=== PATIENT | male | born 1995 | race Caucasian/White ===

== ENCOUNTER 2017-08-09 10:11 | Emergency (ER) | payer MEDICAID, OTHER ==
[2017-08-09 11:04] LABS: GLUCOSE, URINE (UA) NEGATIVE (NEGATIVE); KETONES,URINE (UA) TRACE mg/dL (NEGATIVE); LEUKOCYTE ESTERASE, URINE NEGATIVE (NEGATIVE); NITRITE,URINE NEGATIVE (NEGATIVE); OCCULT BLOOD,URINE NEGATIVE (NEGATIVE); PROTEIN,URINE 30 mg/dL (NEGATIVE); UROBILINOGEN,URINE 0.2 (NORMAL) E.U./dL (NORMAL)
[2017-08-09 11:07] LABS: BILIRUBIN,URINE NEGATIVE (NEGATIVE); CLARITY,URINE CLEAR (CLEAR); ICTOTEST,URINE NEGATIVE
[2017-08-09 11:14] LABS: BACTERIA,URINE Few /HPF (None Seen); MUCUS,URINE Marked Strands; RBC,URINE 0-5 /HPF (0-5); SQUAMOUS EPITHELIAL CELL,UR RARE Squamous (<= Few)
[2017-08-09 11:15] LABS: BASOPHILS # (AUTO) 0.1 10^3/uL (0.0-0.1); BASOPHILS % (AUTO) 0.5 %; EOSINOPHILS # (AUTO) 0.2 10^3/uL (0.0-0.7); EOSINOPHILS % (AUTO) 1.3 %; HGB - HEMOGLOBIN 16.4 g/dL (14.0-18.0); LYMPHOCYTES # (AUTO) 1.2 10^3/uL (1.5-3.5); LYMPHOCYTES % (AUTO) 10.9 %; MEAN CORPUSCULAR HEMOGLOBIN 31.4 pg (27.0-31.0); MEAN CORPUSCULAR HGB CONC 33.9 g/dL (32.0-36.0); MEAN CORPUSCULAR VOLUME 92.7 fL (80.0-94.0); MEAN PLATELET VOLUME 7.2 fL (7.4-11.4); MONOCYTES # (AUTO) 0.6 10^3/uL (0.0-1.0); MONOCYTES % (AUTO) 5.6 %; NEUTROPHILS # (AUTO) 9.3 10^3/uL (1.5-6.6); NEUTROPHILS % (AUTO) 81.7 %; PLT - PLATELET COUNT 273 10^3/uL (130-450); RED BLOOD COUNT 5.22 10^6/uL (4.70-6.10); RED CELL DISTRIBUTION WIDTH 13.6 % (12.0-15.0); WHITE BLOOD COUNT 11.4 x10^3/uL (4.8-10.8)
[2017-08-09] MEDS ORDERED: MAG HYDROX/AL HYDROX/SIMETH 30 ML UDC PO STA (11:16)
[2017-08-09] MEDS ORDERED: SODIUM CHLORIDE 0.9% 1,000 ML IV ONE (11:16)
[2017-08-09] MEDS ORDERED: LIDOCAINE VISCOUS 2% 15 ML UDC MM STA (11:16)
[2017-08-09] MEDS ORDERED: PANTOPRAZOLE 40 MG VIAL IVP STA (11:16)
[2017-08-09] MEDS ORDERED: ONDANSETRON 4 MG/2 ML VIAL IVP STA ×2 (11:16→12:06)
--- NOTE | 2017-08-09 11:19 | ED Physician Documentation ---
PD HPI ABD PAIN - Stated complaint Stated Complaint: ABD PX - Chief complaint Chief Complaint: Abd Pain - History obtained from History obtained from: Patient, Family - History of Present Illness Timing - onset: How many weeks ago (2) Timing - duration: Weeks (2) Timing - details: Gradual onset, Still present, Waxing and waning Quality: Sharp, Pain Location: LUQ Radiation: Left flank Improved by: Laying still Worsened by: Eating Associated symptoms: Nausea, Vomiting. No: Diarrhea, Constipation Similar symptoms before: Diagnosis (PUD) Recently seen: Not recently seen - Additional information Additional information: 21-year-old male is developed some left upper quadrant abdominal pain The morning after a night of drinking and he felt this was likely due to the drinking itself. He try to medicate this with some acid reducing medicine and he vomited it he states he is not they have been able to hold this medicine down he has been able to hold fluids and food down if he smokes weed. Review of Systems Constitutional: denies: Fever Eyes: denies: Decreased vision Ears: denies: Ear pain Nose: denies: Rhinorrhea / runny nose, Congestion Throat: denies: Sore throat Cardiac: denies: Chest pain / pressure, Palpitations Respiratory: denies: Dyspnea, Cough GI: reports: Abdominal Pain, Nausea, Vomiting : denies: Dysuria, Frequency Skin: denies: Rash Musculoskeletal: reports: Back pain. denies: Neck pain, Extremity pain Neurologic: denies: Generalized weakness, Focal weakness, Numbness, Difficulty speaking PD PAST MEDICAL HISTORY - Past Medical History Past Medical History: No - Past Surgical History Past Surgical History: No - Present Medications Home Medications: Ambulatory Orders Medication Instructions Recorded Confirmed Ondansetron Odt [Zofran] 4 mg TL Q6H PRN #10 tablet 08/09/17 - Allergies Allergies/Adverse Reactions: Allergies Allergy/AdvReac Type Severity Reaction Status Date / Time No Known Drug Allergies Allergy Verified 08/09/17 10:19 - Social History Does the pt smoke?: Yes Smoking Status: Current every day smoker PD ED PE NORMAL - Vitals Vital signs reviewed: Yes (hypertensive ) - General General: Alert and oriented X 3, No acute distress, Well developed/nourished - HEENT HEENT: Atraumatic, PERRL, EOMI - Neck Neck: Supple, no meningeal sign, No bony TTP - Cardiac Cardiac: RRR, No murmur - Respiratory Respiratory: No respiratory distress, Clear bilaterally - Abdomen Abdomen: Soft, Other (mild epigastric tenderness to palpation ) - Back Back: No CVA TTP, Other (tenderness to the paraspinous muscles on the left at the T/L junction ) - Derm Derm: Normal color, Warm and dry, No rash - Extremities Extremities: No deformity, No edema - Neuro Neuro: No motor deficit, No sensory deficit Eye Opening: Spontaneous Motor: Obeys Commands Verbal: Oriented GCS Score: 15 - Psych Psych: Normal mood, Normal affect Results - Vitals Vitals: Vital Signs - 24 hr 08/09/17 08/09/17 10:17 13:20 Temperature 35.9 C L Heart Rate 82 56 L Respiratory 18 18 Rate Blood Pressure 145/75 H 132/82 H O2 Saturation 99 100 Oxygen O2 Source Room air - Labs Labs: Laboratory Tests 08/09/17 08/09/17 08/09/17 10:55 11:00 11:00 WBC 11.4 H RBC 5.22 Hgb 16.4 Hct 48.4 MCV 92.7 MCH 31.4 H MCHC 33.9 RDW 13.6 Plt Count 273 MPV 7.2 L Neut # 9.3 H Lymph # 1.2 L [place] # 0.6 Eos # 0.2 Baso # 0.1 Absolute Nucleated RBC 0.00 Nucleated RBC % 0.0 Sodium 135 Potassium 3.6 Chloride 100 L Carbon Dioxide 27 Anion Gap 8.0 BUN 10 Creatinine 1.1 Estimated GFR (MDRD) 85 L Glucose 118 H Calcium 9.4 Total Bilirubin 1.1 H AST 22 ALT 17 Alkaline Phosphatase 56 Total Protein 7.9 Albumin 5.2 Globulin 2.7 Albumin/Globulin Ratio 1.9 Lipase 14 L Urine Color DARK YELLOW Urine Clarity CLEAR Urine pH 6.0 Ur Specific [place] >=1.030 H Urine Protein 30 H Urine Glucose (UA) NEGATIVE Urine Ketones TRACE Urine Occult Blood NEGATIVE Urine Nitrite NEGATIVE Urine Bilirubin NEGATIVE Urine Urobilinogen 0.2 (NORMAL) Ur Leukocyte Esterase NEGATIVE Urine RBC 0-5 Urine WBC 0-3 Ur Squamous Epith Cells RARE Squamous Urine Bacteria Few Urine Mucus Marked Strands Ur Microscopic Review INDICATED Urine Culture Comments NOT INDICATED - Rads (name of study) CT abd/pel without Radiology: Prelim report reviewed (Impression: Normal abdomen and pelvis CT. Normal appendix.), EMP read indepedently, See rad report Procedures - Bedside sono Bedside sono by EMP: With use of bedside ultrasound the left kidney is imaged it is sonographically nontender and without evidence of hydronephrosis. - IVC sono (time) 1100 Bedside IVC sono: IVC measures (cm) (1.75), Euvolemia PD MEDICAL DECISION MAKING - ED course Complexity details: reviewed old records, reviewed results, re-evaluated patient , considered differential, d/w patient ED course: This young 21-year-old male has had an issue with nausea and vomiting for the last 2 weeks and some abdominal pain. After review of history and findings on physical exam and laboratory studies, which were all negative I did ask the patient about his bathing and he indicates that he is getting into the shower 4 times per day to relieve symptoms. We then had a discussion about cannabis hyperemesis and I recommended he stop the cannabis and use the Zofran as needed. He did get relief with Zofran he did not get relief with a GI cocktail. Departure - Departure Disposition: 01 Home, Self Care Clinical Impression: Cannabis hyperemesis syndrome concurrent with and due to cannabis abuse Gastritis Qualifiers: Gastritis type: unspecified gastritis Chronicity: acute Gastritis bleeding: without bleeding Qualified Code(s): K29.00 - Acute gastritis without bleeding Condition: Stable Instructions: ED PUD Vs Gastritis Follow-Up: [facility] [Provider Group] Prescriptions: Ondansetron Odt [Zofran] 4 mg TL Q6H PRN #10 tablet PRN Reason: Nausea / Vomiting Comments: Today it appears the pain you are having is related to your stomach and the vomiting your experience is likely related to use of excessive cannabis. My recommendation is that you stop the cannabis and use the Zofran as needed for the nausea and expect your symptoms to resolve within the next week. Forms: Activity restrictions
[2017-08-09 11:28] LABS: ALBUMIN 5.2 g/dL (3.2-5.5); ALBUMIN/GLOBULIN RATIO 1.9 (1.0-2.2); BILIRUBIN,TOTAL 1.1 mg/dL (0.2-1.0); CALCIUM 9.4 mg/dL (8.5-10.3); CREATININE 1.1 mg/dL (0.6-1.2); TOTAL PROTEIN 7.9 g/dL (6.7-8.2)
[2017-08-09] MEDS ORDERED: KETOROLAC 60 MG/2 ML VIAL IVP STA (12:06)
--- NOTE | 2017-08-09 12:55 | CT Preliminary Report ---
Exam: CT ABDOMEN/PELVIS W/O IMPRESSION: Normal abdomen and pelvis CT. normal appendix [facility] SITE ID: [id number]
--- NOTE | 2017-08-09 12:55 | CT Report ---
EXAM: CT ABDOMEN AND PELVIS EXAM DATE: 08/09/2017 12:19 PM. CLINICAL HISTORY: Left upper quadrant pain. COMPARISONS: None. TECHNIQUE: Routine helical CT imaging was performed through the abdomen and pelvis. IV contrast: Amt/ type. Enteric contrast: No. Reconstructions: Coronal and sagittal. In accordance with CT protocol optimization, one or more of the following dose reduction techniques w ere utilized for this exam: automated exposure control, adjustment of mA and/or KV based on patient s ize, or use of iterative reconstructive technique. FINDINGS: Lung Bases: Unremarkable. Liver: Normal. No masses. Gallbladder/Bile Ducts: Unremarkable. Spleen: Normal. Pancreas: Normal. Adrenal Glands: Normal. Kidneys: Normal. No masses or hydronephrosis. Peritoneal Cavity/Bowel: Normal. No free fluid, free air or adenopathy. No masses or acute inflammato ry process. The appendix is well visualized and normal. Pelvic Organs: Normal. The bladder and visualized pelvic organs are within normal limits. Vasculature: No aneurysms or other significant abnormality. Bones: No significant abnormality. Other: None. IMPRESSION: Normal abdomen and pelvis CT. normal appendix [facility] Referring Provider Line: [phone] SITE ID: [id number]
[2017-08-09 13:20] VITALS: BP 132/82
== END 2017-08-09 14:05 | disposition home or self-care (01) ==
LOC: ED 10:11
DX: K29.00 Acute gastritis without bleeding (principal); F12.188 Cannabis abuse with other cannabis-induced disorder; R11.2 Nausea with vomiting, unspecified; F17.200 Nicotine dependence, unspecified, uncomplicated
CPT/HCPCS: 36415; 74176; 80053; 81001; 83690; 85025; 96374; 96375; 96376; 99283; 99284; A9270; 81003; 87086

== ENCOUNTER 2018-12-15 14:56 | Emergency (ER) | payer MEDICAID ==
--- NOTE | 2018-12-15 15:39 | ED Physician Documentation ---
PD HPI ABD PAIN - Stated complaint Stated Complaint: AB PX - Chief complaint Chief Complaint: Abd Pain - History obtained from History obtained from: Patient - History of Present Illness Timing - onset: How many days ago (2-3) Timing - details: Gradual onset, Still present Quality: Aching, Pain Location: Epigastric, Periumbilical Radiation: No: Lower back Improved by: Vomiting, Other (taking shower or bath) Worsened by: Eating Associated symptoms: Nausea, Vomiting (has had nausea and vomiting with some mid abd pain for 2-3 days. Had had similar in the past and Dx as possible cannibis hyperemesis. Also with gastritis/ulcer in the past. Has had the N/V for 3 days and also now a day of epigastric pains.) Similar symptoms before: Diagnosis (ulcer and possible cannibis hyperemesis episode) Review of Systems Constitutional: denies: Fever, Myalgias Nose: denies: Rhinorrhea / runny nose, Congestion Throat: denies: Sore throat Respiratory: denies: Cough GI: reports: Abdominal Pain, Nausea, Vomiting. denies: Diarrhea, Hematemesis Neurologic: reports: Generalized weakness. denies: Focal weakness, Numbness, Altered mental status, Headache PD PAST MEDICAL HISTORY - Past Medical History Past Medical History: No GI: Ulcers - Past Surgical History Past Surgical History: No - Present Medications Home Medications: Ambulatory Orders Medication Instructions Recorded Confirmed Ondansetron Odt [Zofran] 4 mg TL Q6H PRN #10 tablet 08/09/17 Ondansetron Odt [Zofran] 4 mg TL Q6H PRN #20 tablet 12/15/18 Sucralfate [Carafate] 1 gm PO ACHS #24 tablet 12/15/18 Tramadol HCl 50 mg PO Q6H PRN #15 tablet 12/15/18 - Allergies Allergies/Adverse Reactions: Allergies Allergy/AdvReac Type Severity Reaction Status Date / Time No Known Drug Allergies Allergy Verified 12/15/18 15:06 - Social History Does the pt smoke?: Yes Smoking Status: Current some day smoker Does the pt drink ETOH?: Yes Substance Use and Type: Marijuana (he says he had not had any for 3 days since symptoms onset and "will never use any again".) - Immunizations Immunizations are current?: Yes PD ED PE NORMAL - Vitals Vital signs reviewed: Yes - General General: Alert and oriented X 3, Well developed/nourished, Other (appears uncomfortable with dry heaving and upper abd pain. ) - HEENT HEENT: Pharynx benign. No: Moist mucous membranes - Neck Neck: Supple, no meningeal sign, No adenopathy - Cardiac Cardiac: RRR (tachycardic), No murmur - Respiratory Respiratory: Clear bilaterally - Abdomen Abdomen: Non distended, No organomegaly, Other (tender upper and mid abd. Not te nder lower abd. No percussion tenderness. ). No: Normal bowel sounds (increased) - Male Male : Deferred - Rectal Rectal: Deferred - Back Back: No CVA TTP - Derm Derm: Warm and dry. No: Normal color (some pallor) - Extremities Extremities: Normal ROM s pain - Neuro Neuro: Alert and oriented X 3, No motor deficit, Normal speech Results - Vitals Vitals: Oxygen O2 Source Room air - Labs Labs: Laboratory Tests 12/15/18 12/15/18 12/15/18 15:45 15:45 15:45 WBC 8.4 RBC 5.54 Hgb 17.1 Hct 50.2 MCV 90.6 MCH 30.9 MCHC 34.1 RDW 12.7 Plt Count 289 MPV 9.0 Neut # (Auto) 6.4 Lymph # (Auto) 1.3 L [place] # (Auto) 0.7 Eos # (Auto) 0.0 Baso # (Auto) 0.0 Absolute Nucleated RBC 0.00 Nucleated RBC % 0.0 Sodium 144 Potassium 3.7 Chloride 106 Carbon Dioxide 21 Anion Gap 17.0 H BUN 16 Creatinine 1.1 Estimated GFR (MDRD) 84 L Glucose 123 H Calcium 10.5 H Magnesium 1.9 Total Bilirubin 1.2 H AST 23 ALT 19 Alkaline Phosphatase 48 Total Protein 8.6 H Albumin 5.7 H Globulin 2.9 Albumin/Globulin Ratio 2.0 Lipase 26 PD MEDICAL DECISION MAKING - ED course Complexity details: reviewed results, re-evaluated patient (feeling better with IV fluids and meds (antiemetic Haldol, famotidine, and dilaudid)), considered differential (could be cannibis hyperemesis with then triggered ulcer/gastritis. ), d/w patient Departure - Departure Disposition: 01 Home, Self Care Clinical Impression: Upper abdominal pain Gastritis Qualifiers: Gastritis type: unspecified gastritis Chronicity: unspecified Gastritis bleeding: without bleeding Qualified Code(s): K29.70 - Gastritis, unspecified, without bleeding Nausea and vomiting Qualifiers: Vomiting type: unspecified Vomiting Intractability: intractable Qualified Code(s): R11.2 - Nausea with vomiting, unspecified Condition: Stable Record reviewed to determine appropriate education?: Yes Instructions: ED PUD Vs Gastritis Follow-Up: Fabián Otero MD [Credentialed Staff Provider] - Prescriptions: Ondansetron Odt [Zofran] 4 mg TL Q6H PRN #20 tablet PRN Reason: Nausea / Vomiting Sucralfate [Carafate] 1 gm PO ACHS #24 tablet Tramadol HCl 50 mg PO Q6H PRN #15 tablet PRN Reason: Pain Comments: [place] food and frequent fluids tonight and tomorrow. Your stomach will be irritated from the vomiting. It sounds like you may have a gastritis or ulcer as well underlying. Bring a stool sample to your primary care to have an test for a bacteria called H. pylori. Continue your omeprazole. Add sucralfate 3 or 4 times a day to that to help coat the stomach. Ondansetron if needed for nausea. Tylenol if needed for pains. Do not use ibuprofen or naproxen as it can irritate your stomach. No alcohol and no marijuana. Follow-up with your primary care this coming week. Discharge Date/Time: 12/15/18 19:02
[2018-12-15 15:53] LABS: BASOPHILS % (AUTO) 0.5 %; EOSINOPHILS % (AUTO) 0.4 %; HGB - HEMOGLOBIN 17.1 g/dL (14.0-18.0); LYMPHOCYTES # (AUTO) 1.3 10^3/uL (1.5-3.5); MEAN CORPUSCULAR HEMOGLOBIN 30.9 pg (27.0-31.0); MEAN CORPUSCULAR HGB CONC 34.1 g/dL (32.0-36.0); MEAN CORPUSCULAR VOLUME 90.6 fL (80.0-94.0); MONOCYTES # (AUTO) 0.7 10^3/uL (0.0-1.0); MONOCYTES % (AUTO) 7.7 %; NEUTROPHILS # (AUTO) 6.4 10^3/uL (1.5-6.6); NEUTROPHILS % (AUTO) 76.2 %; PLT - PLATELET COUNT 289 10^3/uL (130-450); RED BLOOD COUNT 5.54 10^6/uL (4.70-6.10); RED CELL DISTRIBUTION WIDTH 12.7 % (12.0-15.0); WHITE BLOOD COUNT 8.4 x10^3/uL (4.8-10.8)
[2018-12-15 16:08] LABS: ALBUMIN 5.7 g/dL (3.2-5.5); BILIRUBIN,TOTAL 1.2 mg/dL (0.2-1.0); CALCIUM 10.5 mg/dL (8.5-10.3); CREATININE 1.1 mg/dL (0.6-1.2); TOTAL PROTEIN 8.6 g/dL (6.7-8.2)
[2018-12-15] MEDS ORDERED: SODIUM CHLORIDE 0.9% 1,000 ML IV ONE ×2 (16:09→16:17)
[2018-12-15] MEDS ORDERED: HYDROmorphone 2 MG/ML VIAL IVP STA (16:09)
[2018-12-15] MEDS ORDERED: HALOPERIDOL 5 MG/ML VIAL IVP ONE (16:16)
[2018-12-15] MEDS ORDERED: FAMOTIDINE 20 MG/2 ML VIAL IVP STA (16:17)
[2018-12-15 18:33] VITALS: BP 123/72
[2018-12-15] MEDS ORDERED: ONDANSETRON ODT 4 MG Prepack 2 TL PRN (18:37)
[2018-12-15] MEDS ORDERED: HYDROcod/ACET 5/325 Prepack 4 PO STA (18:37)
== END 2018-12-15 19:02 | disposition home or self-care (01) ==
LOC: ED 14:56
DX: K29.70 Gastritis, unspecified, without bleeding (principal); F17.200 Nicotine dependence, unspecified, uncomplicated
CPT/HCPCS: 36415; 80053; 83690; 83735; 85025; 96361; 96374; 96375; 99283; 99284; J1170; 87338

== ENCOUNTER 2018-12-17 08:00 | Outpatient (CLI) | payer MEDICAID ==
[2018-12-17 19:42] LABS: H. PYLORIS ANTIGEN STL NEGATIVE (Negative)
== END 2018-12-17 08:01 | disposition home or self-care (01) ==
LOC: LAB.R 08:00
PROVIDERS: ATTEND Internal Medicine
DX: R10.12 Left upper quadrant pain (principal)
CPT/HCPCS: 87338

== ENCOUNTER 2020-04-01 17:15 | Outpatient (CLI) | payer OTHER | END 2020-04-01 17:16 | disposition home or self-care (01) | LOC: COV 17:15 | PROVIDERS: ATTEND Family Medicine | DX: R05 Cough (principal); R06.02 Shortness of breath; R68.83 Chills (without fever); J02.9 Acute pharyngitis, unspecified; R09.81 Nasal congestion; R43.8 Other disturbances of smell and taste; Z20.828 Contact with and (suspected) exposure to other viral communicable diseases ==